=== PATIENT | female | born 1975 | race Caucasian/White ===

== ENCOUNTER 2019-06-10 22:00 | Emergency (ER) | payer OTHER ==
[~2019-06-10] VITALS: Ht 165.1 cm; Wt 72.6 kg
[2019-06-10 22:05] VITALS: BP 170/89
--- NOTE | 2019-06-10 22:08 | NUR ---
TO LOBBY A/W BED AMBULATORY
--- NOTE | 2019-06-10 22:44 | NUR ---
PT AMBULATED TO BED 03
--- NOTE | 2019-06-10 23:34 | NUR ---
43 Y/O FEMALE PRESENTS TO ED, C/O CONSTIPATION X2 WEEKS. BS HYPOACTIVE. ABDOMEN FIRM AND ROUND. PT STATES TAKING UNKNOWN STOOL SOFTENER MEDICATION WITH NO RELIEF. PT DENIES N/V. C/O OF ABDOMINAL PAIN 11/19. PT VSS. ERMD AWARE. WILL CONTINUE TO MONITOR.
[2019-06-10 23:40] VITALS: BP 166/77
--- NOTE | 2019-06-10 23:40 | NUR ---
PT DISCHARGED WITH PAPERWORK. EDUCATED PT REGARDING MEDICATIONS AND D/C INSTRUCTIONS. PT VERBALIZED WITH UNDERSTANDING. TOLD PT TO FOLLOW UP WITH PCP AND WHEN TO RETURN TO ED. PT AT STABLE CONDITION. ALL QUESTIONS ANSWERED.
== END 2019-06-10 23:40 | disposition home or self-care (01) ==
LOC: MED 22:00
DX: K59.00 Constipation, unspecified (principal)
CPT/HCPCS: 74018; 99283